=== PATIENT | female | born 1995 | race Caucasian/White ===

== ENCOUNTER 2021-04-17 15:56 | Emergency (ER) | payer OTHER ==
[2021-04-17 16:32] LABS: BASOPHIL 0.6 % (0-2); EOSINOPHIL 3.3 % (0-5); HCT 38.5 % (37.0-47.0); HGB 12.7 g/dl (12.5-16.0); LYMPHOCYTE 31.7 % (15-48); MCH 29.3 pg (25.0-31.0); MCV 88.7 fL (78.0-100.0); MONOCYTE 6.3 % (0-12); NEUTROPHIL 57.8 % (41-80); NRBC 0; PLT 199 K/uL (150-400); RBC 4.34 M/uL (4.20-5.40); RDW 12.5 % (11.5-14.0); WBC 7.3 K/uL (4.0-10.5)
[2021-04-17 16:54] LABS: BUN/CREAT RATIO (CALC) 15.5 RATIO; CREATININE 0.58 mg/dL (0.51-0.95); POTASSIUM 3.9 mmol/L (3.5-5.1)
[2021-04-17] MEDS ORDERED: VENTOLIN HFA IN18 GM INH (17:19)
[2021-04-17] MEDS ORDERED: MEDROL 4MG DOSEP4 MG PO (17:19)
== END 2021-04-17 17:53 | disposition home or self-care (01) ==
LOC: FER 15:56
PROVIDERS: Nurse Practitioner Family
DX: J45.901 Unspecified asthma with (acute) exacerbation (principal); F41.9 Anxiety disorder, unspecified; Z88.0 Allergy status to penicillin
CPT/HCPCS: 36415; 71046; 80048; 85025; J2930